=== PATIENT | female | born 1980 ===

== ENCOUNTER 2018-03-10 13:34 | Emergency (ER) | payer MEDICAID, OTHER ==
[2018-03-10 13:48] VITALS: RESP 18; TEMP 98.4; O2SAT 100; BMI 28.1
[2018-03-10] MEDS ORDERED: Sodium Chloride 0.9% 1,000 ML IV STA (14:02)
[2018-03-10 14:29] LABS: URINE BILIRUBIN NEGATIVE (NEGATIVE); URINE BLOOD NEGATIVE (NEGATIVE); URINE GLUCOSE (UA) NEGATIVE (NEGATIVE); URINE LEUKOCYTE ESTERASE NEGATIVE Leu/uL (NEGATIVE); URINE PROTEIN NEGATIVE mg/dL (<30 mg/dL); URINE UROBILINOGEN 0.2 E.U./dL (<1 E.U./dL)
[2018-03-10 14:31] LABS: URINE APPEARANCE CLEAR (CLEAR); URINE COLOR COLORLESS (YELLOW)
[2018-03-10 14:40] LABS: BASO # 0.04 K/mm3 (0.0-2.0); BASO % 0.5 % (0.0-3.0); EOS # 0.2 (0.0-0.7); GRAN # 5.52 (1.4-6.5); GRAN % 67.3 % (50.0-68.0); HEMOGLOBIN 13.5 g/dL (12.0-16.0); LYMPH % 24.1 % (22.0-35.0); MEAN CELL VOLUME 89.3 fl (80.0-105.0); MEAN CORPUSCULAR HEMOGLOBIN 31.5 pg (25.0-35.0); MEAN CORPUSCULAR HGB CONC 35.2 g/dl (31.0-37.0); MEAN PLATELET VOLUME 9.7 fl (7.0-11.0); MONO # 0.5 (0.1-0.6); MONO % 6.1 % (1.0-6.0); RBC 4.29 10^6/uL (3.5-6.1); RED CELL DISTRIBUTION WIDTH 12.4 % (11.5-14.5); WHITE BLOOD COUNT 8.2 10^3/ul (4.5-11.0)
[2018-03-10 15:29] LABS: CALCIUM 8.7 mg/dL (8.4-10.5); LIPASE 102 U/L (23-300)
[2018-03-10 15:31] LABS: ALB/GLOB RATIO 1.3 (1.1-1.8); ALT/SGPT 26 U/L (7-56); AST/SGOT 32 U/L (14-36); BLOOD UREA NITROGEN 5 mg/dL (7-21)
[2018-03-10 16:00] LABS: GFR AFRICAN-AMERICAN > 60; GFR NON-AFRICAN AMERICAN > 60
--- NOTE | 2018-03-10 16:07 | ED PDOC ---
Arrival/HPI - General Chief Complaint: Abdominal Pain Time Seen by Provider: 03/10/18 13:55 Historian: Patient - History of Present Illness Narrative History of Present Illness (Text): 03/10/18 16:04 37-year-old female presents today with worsening left lower quadrant abdominal pain. Patient was seen by her primary care physician and was told to follow-up with a GI specialist. Patient states she's been unable to follow up with the specialist that she is having continued pain in the left lower quadrant patient complaining of nausea no vomiting or diarrhea. No chest pain or shortness of breath. Patient denies fevers or chills. Denies any urinary symptoms. No bladder or bowel incontinence. No other complaints Past Medical History - Provider Review Nursing Documentation Reviewed: Yes - Travel History Have you recently traveled outside [place] w/in the past 3 mons?: No - Infectious Disease Hx of Infectious Diseases: None - Tetanus Immunization Tetanus Immunization: Unknown - Past Medical History Past Medical History: No Previous - Endocrine/Metabolic Hx Endocrine Disorders: Yes Hx Systemic Lupus Erythematosus: Yes - Musculoskeletal/Rheumatological Hx Rheumatoid Arthritis: Yes - Genitourinary/Gynecological Other/Comment: ovarian cysts - Psychiatric Hx Depression: No Hx Substance Use: No - Surgical History Hx Cholecystectomy: Yes - Anesthesia Hx Anesthesia: Yes Hx Anesthesia Reactions: No Hx Malignant Hyperthermia: No - Suicidal Assessment Feels Threatened In Home Enviroment: No Family/Social History - Physician Review Nursing Documentation Reviewed: Yes Family/Social History: Unknown Family HX Smoking Status: Former Smoker Hx Alcohol Use: No Hx Substance Use: No Hx Substance Use Treatment: No Allergies/Home Meds Allergies/Adverse Reactions: Allergies No Known Allergies Allergy (Verified 03/10/18 13:59) Home Medications: Home Meds Medication Instructions Recorded Confirmed Zolpidem [Ambien] 10 mg PO HS 03/19/17 03/10/18 Hydroxychloroquine Sulfate 200 mg PO BID 03/10/18 03/10/18 [Plaquenil] Review of Systems - Review of Systems Constitutional: absent: Fatigue, Fevers Respiratory: absent: SOB, Cough Cardiovascular: absent: Chest Pain, Palpitations Gastrointestinal: Abdominal Pain, Nausea. absent: Constipation, Diarrhea, Vomiting Genitourinary Female: absent: Dysuria, Frequency, Hematuria, Vaginal Bleeding, Vaginal Discharge Musculoskeletal: absent: Arthralgias, Back Pain, Neck Pain Skin: absent: Rash, Pruritis Neurological: absent: Headache, Dizziness Psychiatric: absent: Anxiety, Depression Physical Exam Vital Signs Reviewed: Yes Vital Signs Temp Pulse Resp BP Pulse Ox 03/10/18 19:00 61 18 131/69 100 03/10/18 16:15 65 18 135/74 100 03/10/18 15:17 69 18 138/84 100 03/10/18 13:48 98.4 F 73 18 140/93 H 100 Temperature: Afebrile Blood Pressure: Hypertensive Pulse: Regular Respiratory Rate: Normal Appearance: Positive for: Well-Appearing, Non-Toxic, Comfortable Pain Distress: None Mental Status: Positive for: Alert and Oriented X 3 - Systems Exam Head: Present: Atraumatic Mouth: Present: Moist Mucous Membranes Neck: Present: Normal Range of Motion Respiratory/Chest: Present: Clear to Auscultation, Good Air Exchange. No: Respiratory Distress, Accessory Muscle Use Cardiovascular: Present: Regular Rate and Rhythm, Normal S1, S2. No: Murmurs Abdomen: Present: Tenderness (+ minimal LLQ tenderness; + suprapubic tenderness ; no rebound or guarding. ). No: Distention, Peritoneal Signs, Rebound, Guarding Back: Present: Normal Inspection. No: CVA Tenderness, Midline Tenderness, Paraspinal Tenderness Upper Extremity: Present: Normal ROM Lower Extremity: Present: Normal ROM Neurological: Present: GCS=15, Speech Normal Skin: Present: Warm, Dry, Normal Color. No: Rashes Psychiatric: Present: Alert, Oriented x 3 Medical Decision Making ED Course and Treatment: 03/10/18 17:05 Patient is nontoxic well appearing with stable vital signs presenting with lower abdominal pain CBC wnl CMP wnl Lipase wnl Urinalysis: wnl CAT scan: FINDINGS: LOWER THORAX: The visualized lungs are clear. LIVER: The liver is normal in size and there is mild fatty infiltration. Tiny low- attenuation lesions in the right posterior inferior hepatic lobes are too small to characterize by CT criteria. No intrahepatic biliary ductal dilatation. GALLBLADDER AND BILE DUCTS: Surgically absent. PANCREAS: Normal in size with homogeneous enhancement. No ductal dilatation or mass. SPLEEN: Normal in size and appearance. ADRENALS: No discrete nodule. KIDNEYS AND URETERS: Both kidneys are normal in size and there is homogeneous enhancement without hydronephrosis or mass. VASCULATURE: No aortic aneurysm. BOWEL: The small bowel loops are normal in caliber. No bowel dilatation or obstruction. APPENDIX: Normal appendix. PERITONEUM: No free fluid. No free air. LYMPH NODES: No enlarged lymph nodes. BLADDER: Over distended and normal in appearance. REPRODUCTIVE: The uterus is normal in size. No adnexal masses BONES: No acute fracture. Moderate degenerative disc disease at L4-5 OTHER FINDINGS: None. IMPRESSION: No acute abdominal or pelvic abnormality. Over distended urinary bladder, grossly normal in appearance. Patient reassessment: pt non toxic well appearing. no distress. stable vitals. no complaints. Discussed all results with patient in depth. stressed importance of f/u with GI within the next 2 days. pt was advised to return immediately if symptoms worsen , persist or if new symptoms develop. Patient verbalizes understanding of discharge instructions and need for immediate followup. all aspects of this case were discussed the attending of record. Impression: Abdominal pain Tylenol every 4 hours as needed for pain Pepcid one tablet daily Follow up with primary care physician within the next 2 days Follow up with the Gi doctor within the next 2 days. Return immediately if symptoms worsen persist or if new symptoms develop: High fevers, increasing pain, vomiting, diarrhea or any other concerning symptoms develop Reassessment Condition: Re-examined, Improved - Lab Interpretations Lab Results: 03/10/18 14:20 03/10/18 14:55 Lab Results 03/10/18 14:55: Sodium 139, Potassium 3.9, Chloride 107, Carbon Dioxide 23, Anion Gap 13, BUN 5 L, Creatinine 0.7, Est GFR ( Amer) > 60, Est GFR (Non -Af Amer) > 60, Random Glucose 94, Calcium 8.7, Total Bilirubin 0.7, AST 32, ALT 26, Alkaline Phosphatase 54, Total Protein 7.0, Albumin 4.0, Globulin 3.0, Albumin/Globulin Ratio 1.3, Lipase 102 03/10/18 14:20: Urine Color Colorless, Urine Appearance Clear, Urine pH 6.0, Ur Specific [place] <= 1.005, Urine Protein Negative, Urine Glucose (UA) Negative, Urine Ketones Negative, Urine Blood Negative, Urine Nitrate Negative, Urine Bilirubin Negative, Urine Urobilinogen 0.2, Ur Leukocyte Esterase Negative 03/10/18 14:20: WBC 8.2, RBC 4.29, Hgb 13.5, Hct 38.3, MCV 89.3, MCH 31.5, MCHC 35.2, RDW 12.4, Plt Count 343, MPV 9.7, Gran % 67.3, Lymph % (Auto) 24.1, [place] % (Auto) 6.1 H, Eos % (Auto) 2.0, Baso % (Auto) 0.5, Gran # 5.52, Lymph # (Auto ) 2.0, [place] # (Auto) 0.5, Eos # (Auto) 0.2, Baso # (Auto) 0.04 - RAD Interpretation Radiology Orders: 03/10/18 14:02 ABD & PELVIS IV CONTRAST ONLY [CT] Stat - Medication Orders Current Medication Orders: Discontinued Medications Famotidine (Pepcid) 20 mg IVP STAT STA Stop: 03/10/18 14:03 Last Admin: 03/10/18 14:28 Dose: 20 mg IVP Administration Document 03/10/18 14:28 RIANNA (Rec: 03/10/18 14:28 JOE [id number]) Charges for Administration # of IVP Administrations 1 Sodium Chloride (Sodium Chloride 0.9%) 1,000 mls @ 999 mls/hr IV .Q1H1M STA Stop: 03/10/18 15:02 Last Admin: 03/10/18 14:27 Dose: 999 mls/hr eMAR Start Stop Document 03/10/18 14:27 RIANNA (Rec: 03/10/18 14:27 RIANNA [id number]) Intravenous Solution Start Date 03/10/18 Start Time 14:27 End Date 03/10/18 End time 15:27 Total Infusion Time 60 Disposition/Present on Arrival - Present on Arrival Any Indicators Present on Arrival: No History of DVT/PE: No History of Uncontrolled Diabetes: No Urinary Catheter: No History of Decub. Ulcer: No History Surgical Site Infection Following: None - Disposition Have Diagnosis and Disposition been Completed?: Yes Diagnosis: Abdominal pain Disposition: HOME/ ROUTINE Disposition Time: 19:19 Patient Plan: Discharge Condition: GOOD Discharge Instructions (ExitCare): Acute Abdomen (Belly Pain) Additional Instructions: Tylenol every 4 hours as needed for pain Pepcid one tablet daily Follow up with primary care physician within the next 2 days Follow up with the Gi doctor within the next 2 days. Return immediately if symptoms worsen persist or if new symptoms develop: High fevers, increasing pain, vomiting, diarrhea or any other concerning symptoms develop Prescriptions: Famotidine [Pepcid] 20 mg PO DAILY #30 tab Referrals: Phuc Carlton MD [Staff Provider] - Follow up with primary Leodan Farmer MD [Medical Doctor] - Follow up with primary Forms: [employer] (Belarusian)
[2018-03-10] MEDS ORDERED: Iohexol 350 MG/100 ML VIAL ONE (16:28)
--- NOTE | 2018-03-10 18:00 | CT ---
PROCEDURE: CT Abdomen and Pelvis with contrast HISTORY: lower abdominal pain COMPARISON: None. TECHNIQUE: CT scan of the abdomen and pelvis was performed after administration of intravenous contrast. Oral contrast was not administered. Coronal and sagittal reformatted images were obtained. Contrast dose: 100 mL Omnipaque 350 Radiation dose: Total exam DLP = 684.67 mGy-cm. This CT exam was performed using one or more of the following dose reduction techniques: Automated exposure control, adjustment of the mA and/or kV according to patient size, and/or use of iterative reconstruction technique. FINDINGS: LOWER THORAX: The visualized lungs are clear. LIVER: The liver is normal in size and there is mild fatty infiltration. Tiny low-attenuation lesions in the right posterior inferior hepatic lobes are too small to characterize by CT criteria. No intrahepatic biliary ductal dilatation. GALLBLADDER AND BILE DUCTS: Surgically absent. PANCREAS: Normal in size with homogeneous enhancement. No ductal dilatation or mass. SPLEEN: Normal in size and appearance. ADRENALS: No discrete nodule. KIDNEYS AND URETERS: Both kidneys are normal in size and there is homogeneous enhancement without hydronephrosis or mass. VASCULATURE: No aortic aneurysm. BOWEL: The small bowel loops are normal in caliber. No bowel dilatation or obstruction. APPENDIX: Normal appendix. PERITONEUM: No free fluid. No free air. LYMPH NODES: No enlarged lymph nodes. BLADDER: Over distended and normal in appearance. REPRODUCTIVE: The uterus is normal in size. No adnexal masses BONES: No acute fracture. Moderate degenerative disc disease at L4-5 OTHER FINDINGS: None. IMPRESSION: No acute abdominal or pelvic abnormality. Over distended urinary bladder, grossly normal in appearance.
[2018-03-10 19:12] VITALS: BP 131/69; PULSE 61
== END 2018-03-10 19:37 | disposition home or self-care (01) ==
LOC: ED 13:34
DX: R10.32 Left lower quadrant pain (principal); M32.9 Systemic lupus erythematosus, unspecified; M06.9 Rheumatoid arthritis, unspecified; Z87.891 Personal history of nicotine dependence
CPT/HCPCS: 74177; 80053; 81003; 83690; 85025; 87086; 96361; 96374; 99284; J7040; Q9967